=== PATIENT | male | born 1970 | race Caucasian/White ===

== ENCOUNTER 2019-05-18 01:34 | Outpatient (CLI) | payer OTHER, SELFPAY ==
[2019-05-18 09:52] LABS: Abs Immature Grans 0.02 k/cumm (0.0-0.09); Absolute Basophil Count 0.04 k/cumm (0.0-0.2); Absolute Eosinophil Count 0.19 k/cumm (0.0-0.7); Absolute Lymphocyte Count 2.62 k/cumm (1.2-3.4); Absolute Monocyte Count 0.41 k/cumm (0.11-0.7); Absolute Neutrophil Count 3.62 k/cumm (1.2-6.7); Basophils % 0.6; Eosinophils % 2.8; HCT 45.6 % (40.0-50.0); HGB 15.8 g/dL (13.5-17.5); Immature Grans % 0.3 %; Mean Corp. HGB Concentration 34.6 g/dL (32.0-36.0); Mean Corpuscular Hemoglobin 30.7 pg (27.0-33.0); Mean Corpuscular Volume 88.7 fL (80-95); Mean Platelet Volume 10.4 fL (8.0-11.0); Monocytes % 5.9; Neutrophils % 52.4; Platelet Count 281 x1000/uL (130-400); RBC 5.14 m/cumm (4.50-6.00); RBC Distribution Width 12.5 % (11.8-14.1)
--- NOTE | 2019-05-18 09:56 | DI.US_ITS ---
EXAM: US SCROTUM CLINICAL HISTORY: r/o acute process; L worse than R, pain, swelling, N50.811, N50.812, N50.8. TECHNIQUE: Scrotal ultrasound performed using grayscale, color-flow and spectral Doppler analysis. COMPARISON: No exams were available for comparison FINDINGS: Right testicle: 4.2 x 2.3 x 3.2 cm Left testicle: 4.1 x 2.3 x 2.8 cm Echogenicity: Normal. Contour: Smooth. Mass: None seen. Microlithiasis: A few scattered calcifications in the left testicle. Hydrocele: Small bilateral hydroceles. Variocele: Left varicocele. Hernia: No peristalsing bowel loop identified. Epididymis: Small epididymal head cysts bilaterally. The largest is on the left and measures 3 tyrone meters. DOPPLER: Color: Symmetric and uniform, no hyperemia. Duplex: Bilateral testicular arterial waveforms visualized. IMPRESSION: 1. No evidence of testicular mass or torsion. 2. Incidental findings as described above.
[2019-05-18 11:23] LABS: ALT 41 U/L (16-63); AST 19 U/L (15-37); Albumin 4.1 g/dL (3.4-5.0); Alkaline Phosphatase 67 U/L (46-116); Anion Gap 10.1 mmol/L (3-11); BUN 14 mg/dL (7-18); Bilirubin, Total 0.3 mg/dL (0.2-1.0); CO2 27.9 mmol/L (21.0-32.0); Calcium 9.5 mg/dL (8.5-10.1); Calculated LDL 185 mg/dL; Chloride 104 mmol/L (98-107); Cholesterol 280 mg/dL (<200); Folate 15.6 ng/mL (8.6-20.0); Glucose 103 mg/dL (74-106); HDL Cholesterol 35 mg/dL (40-60); Potassium 4.5 mmol/L (3.5-5.1); Sodium 142 mmol/L (136-145); TSH (W/Ref FT4) 2.59 uIU/mL (0.36-3.74); Total Protein 8.1 g/dL (6.4-8.2); Triglyceride 301 mg/dL (<150)
[2019-05-18 11:35] LABS: Vitamin B12 1038 pg/mL (193-986)
[2019-05-19 10:17] LABS: PSA, Screening 0.6 ng/mL (0.0-3.5)
== END 2019-05-18 01:54 ==
PROVIDERS: PCP Nurse Practitioner Family; Visit Provider Nurse Practitioner Adult Health
DX: N50.811 Right testicular pain (principal); N50.812 Left testicular pain; N50.89 Other specified disorders of the male genital organs; N50.3 Cyst of epididymis; N43.3 Hydrocele, unspecified; F10.11 Alcohol abuse, in remission; Z13.1 Encounter for screening for diabetes mellitus; Z13.220 Encounter for screening for lipoid disorders; Z80.42 Family history of malignant neoplasm of prostate; Z12.5 Encounter for screening for malignant neoplasm of prostate; Z80.8 Family history of malignant neoplasm of other organs or systems
CPT/HCPCS: 36415; 80053; 80061; 84153; 76870; 82607; 82746; 84443; 85025

== ENCOUNTER 2021-12-07 01:17 | Outpatient (CLI) | payer OTHER, SELFPAY ==
--- OUTSIDE RECORDS SUMMARY | 2021-12-07 01:31 | XMS_ITS | Encounter Summary ---
:1970 Author Organization [facility] Address [address] [place] [address] Care Team Providers Name Role Phone Vanesa Shell MD Primary Care Provider Encounter Details Date Type Department Care Team Description 05/18/2019 Lab Requisition [facility] Unknown, Provider, Pathology & Laboratory [facility] [address] [place] [address] Social History Tobacco Use Types Packs/Day Years Used Date Never Assessed Sex Assigned at Date Recorded Not on file documented as of this encounter Plan of Treatment Not on filedocumented as of this encounter Procedures Procedure Name Priority Date/Time Associated Comments Diagnosis PSA TOTAL, Routine 05/18/2019 9:39 EST Results for this DIAGNOSTIC procedure are i n the results section. documented in this encounter Results PSA TOTAL, DIAGNOSTIC (05/18/2019 9:39 EST) Pathologist Sig nature PSA 0.6 0.0 - 3.5 ng/mL [facility] Specimen Blood - Venous blood (substance) Narrative [facility] - 05/19/2019 10:13 EST NOTE: Serum PSA concentration should not be in terpreted as absolute evidence for the presence or absence of malignant disease. Assayed on Siemens ADVIA Centaur XPT usi ng chemiluminescent technology.??Values obtained by using different assay methods cannot be used interchangeably. Performing Organization Address City/State/ZIP Code Phon e Number [facility] [address] [place] [address] SERVICES documented in this encounter Visit Diagnoses Not on filedocumented in this encounter Care Teams Inspector Subassemblies Relationship Specialty Start Date End Date Vanesa Shell MD PCP - General 01/25/15 documented as of this encounter
--- OUTSIDE RECORDS SUMMARY | 2021-12-07 01:31 | XMS_ITS | Clinical Summary ---
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
[2021-12-07 08:27] LABS: HCT 45.3 % (40.0-50.0); MCH 31.6 pg (27.0-33.0); MCHC 35.3 % (32.0-36.0); MCV 89 fL (80-95); MPV 10.4 fL (8.0-11.0); Platelet Count 247 10^3/uL (130-400); RBC 5.07 10^6/uL (4.36-5.78); RDW 11.9 % (11.8-14.1); RDW-SD 38.4 fL; WBC 6.48 10^3/uL (4.4-10.8)
[2021-12-07 08:39] LABS: Hemoglobin A1C 5.5 % (<5.7)
[2021-12-07 09:10] LABS: ALT 29 U/L (16-63); AST 15 U/L (15-37); Albumin 4.2 g/dL (3.4-5.0); Alkaline Phosphatase 56 U/L (46-116); Anion Gap 8.6 mmol/L (3-11); BUN 17 mg/dL (7-18); Bilirubin, Total 0.3 mg/dL (0.2-1.0); CO2 24.4 mmol/L (21.0-32.0); CREATININE 1.1 mg/dL (0.70-1.30); Calculated LDL 157 mg/dL (<100); Chloride 105 mmol/L (98-107); Cholesterol 229 mg/dL (<200); Folate 13.4 ng/mL (8.6-20.0); Glucose 113 mg/dL (74-106); HDL Cholesterol 36 mg/dL (40-60); Potassium 4.1 mmol/L (3.5-5.1); Sodium 138 mmol/L (136-145); TSH (W/Ref FT4) 0.67 uIU/mL (0.36-3.74); Total Protein 8.4 g/dL (6.4-8.2); Triglyceride 183 mg/dL (<150)
[2021-12-10 09:58] LABS: PSA, Screening 0.5 ng/mL (<=3.5)
== END 2021-12-07 01:18 | disposition home or self-care (01) ==
LOC: LBO 01:17
PROVIDERS: Absent Provider Nurse Practitioner; PCP Nurse Practitioner Family; Referring Provider Nurse Practitioner; Visit Provider Nurse Practitioner
DX: E11.9 Type 2 diabetes mellitus without complications (principal); E78.5 Hyperlipidemia, unspecified; R73.01 Impaired fasting glucose; Z12.5 Encounter for screening for malignant neoplasm of prostate; R63.5 Abnormal weight gain
CPT/HCPCS: 36415; 80053; 80061; 84153; 85027; 82746; 83036; 84443

== ENCOUNTER 2022-01-10 02:55 | Outpatient (CLI) | payer OTHER, SELFPAY ==
[2022-01-14 12:27] LABS: Albumin 60.6 % (55.8-66.1); Albumin g/dL 4.6 g/dL (3.6-5.2); Total Protein 7.6 g/dL (6.3-8.2)
== END 2022-01-10 02:56 | disposition home or self-care (01) ==
LOC: LBO 02:55
PROVIDERS: PCP Nurse Practitioner Family; Visit Provider Nurse Practitioner Family
DX: E88.09 Other disorders of plasma-protein metabolism, not elsewhere classified (principal)
CPT/HCPCS: 36415; 84165

== ENCOUNTER 2022-02-07 11:00 | Day surgery (SDC) | payer OTHER, SELFPAY ==
[2022-02-07] VITALS (8 sets, daily range): BP systolic 111–141; BP diastolic 66–90; PULSE 74–92; RESP 14–24; TEMP 36.7–37.2; O2SAT 94–98; BMI 28.8
--- NOTE | 2022-02-07 07:09 | W.PM.DSUDISC ---
Discharge Plan Disposition Patient Disposition: HOME Condition: Good Discharge Details Reason For Visit: Screening colonoscopy for routine maintenance Attending Provider: Vaibhav Rothman Primary Care Provider: Cheryl Jauregui Home Meds and New Rx's Prescriptions: Discontinued polyethylene glycol 3350 17 gram/dose powder 238 g PO ONCE Qty: 238 0RF Rx Instructions: take per colonoscopy instructions bisacodyl [Dulcolax (bisacodyl)] 5 mg tablet,delayed release (DR/EC) 5 mg PO ONCE Qty: 4 0RF Rx Instructions: take per colonoscopy instructions No Action No Known Home Meds Discharge Instructions Additional Instructions: 1. If tolerated, consume a soft, low fiber diet for 1-2 days. 2[address] Do not drive, drink alcohol, operate machinery, make critical decisions, or do activities that require coordination or balance for 24 hours. 3. Because air was put into your colon during the procedure, expelling air from your rectum (passing gas or farting) is normal. 4. You may not have a bowel movement for 1-3 days because of the colonoscopy prep. This is normal. 5. Go directly to the emergency room if you notice any of the following: Develop chills (warm to touch), or if you have a thermometer and your temperature is above 101 Difficulty breathing or difficultly swallowing Persistent vomiting Severe abdominal pain, other than gas cramps Severe chest pain Black, tarry stools Any bleeding ? exceeding one tablespoon 6. Call your physician if the site where your intravenous was started becomes red, swollen, painful, and warm to touch. 7. Your physician has reviewed your pre-procedure medications. Please continue to take those medications as previously ordered. You will be given specific information/education regarding any changes to your medications before leaving. Activity:: Activity as Tolerated Diet:: As Tolerated Discharge Orders Discharge Orders: Discharge Order (Routine); Ordered 02/07/22 Ordered By: Vaibhav Rothman DS: Diagnosis Discharge Diagnosis (1) Screening for malignant neoplasm of colon: Status: Acute Asessment and Plan: Normal colonoscopy. Follow-up in 10 years for your next 1
--- NOTE | 2022-02-07 07:12 | W.COLOREPORT ---
Colonoscopy Report Date of procedure: 02/07/22 Pre-op diagnosis general: Screening colonoscopy routine health maintenance Post-op diagnosis procedure note: same Procedure: Screening colonoscopy Surgeon: Vaibhav Rothman Anesthesia Type: General:No Airway Estimated blood loss (mL): 0 Pathology: none sent Complications: None Disposition: same day Indications: Pawan 51-year-old male who is here for screening colonoscopy Prep: Miralax/Dulcolax Procedure Start Time: 12:07 Procedure End Time: 12:21 Retraction Time: 11 Procedure Description: After the induction of monitored anesthetic care, and with the patient in left lateral decubitus position, I began by performing an external anorectal exam.? Perineum and skin were normal, as was the anal verge.? There was evidence of external hemorrhoids.? Next, I performed a digital rectal exam.? I did appreciate any abnormal findings.? Next, I advanced a colonoscope into the rectal vault.? I performed retroflexion.? There were very mild internal hemorrhoids.? Using insufflation, I then advanced the colonoscope beyond the rectal folds and into the sigmoid colon before advancing towards the cecum.? The quality of the prep was excellent.? The scope was noted to be in the cecum by identification of the ileocecal valve and appendiceal orifice.? I then began withdrawing the colonoscope using repeated irrigation as necessary for full evaluation of the colonic mucosa. ?Once the scope was withdrawn to the level of the rectum, great care was taken to examine portions of the rectal folds.? Finally, the scope was withdrawn and the patient was brought to the same-day surgery recovery unit as the anesthetic wore off. ?The findings and instructions were shared with the patient prior to discharge.
[2022-02-07] MEDS: Lactated Ringers 1,000 ML 80 ML IV (11:40)
--- NOTE | 2022-02-07 11:42 | W.ANESPRE ---
General Info Date of Service Date Performed: 02/07/22 Height: 5 ft 7 in Weight: 83.3 kg Body Mass Index (BMI): 28.8 Surgical Procedure: Operation Date: 02/07/22 12:35 Proposed Procedure Side Surgeon ree Rothman MD Meds Allergies and Home Medications Allergies Allergy/AdvReac Type Severity Reaction Status Date / Time No Known Allergies Allergy Unverified 02/07/22 11:23 Home Medication Medication Instructions Recorded Unknown [No Known Home Meds] 02/07/22 Current Visit Medications: Current Medications Generic Name Dose Route Start Last Admin Trade Name Freq PRN Reason Stop Dose Admin Hyoscyamine Sulfate 0.125 mg 02/07/22 07:11 Hyoscyamine 0.125 Mg Sl/Oral/Chew SL DIRECTED PRN Ringer's Solution 1,000 mls @ 80 mls/hr 02/07/22 06:00 IV 03/08/22 23:59 INFUSION ABDOULAYE IV Miscellaneous Supplies 1 each 02/07/22 06:00 Iv Access IV 03/08/22 23:59 DIRECTED ABDOULAYE Ondansetron HCl 4 mg 02/07/22 07:11 Ondansetron 4 Mg/2 Ml Vial IVP Q4H PRN PRN Nausea / Vomiting Sodium Chloride 0 ml 02/07/22 06:00 Normal Saline Flush 10 Ml Syr IV 03/08/22 23:59 PRN PRN Sodium Chloride 0 ml 02/07/22 06:00 Normal Saline 10 Ml Vial IJ 03/08/22 23:59 DIRECTED PRN Sterile Water 0 ml 02/07/22 06:00 Water,Injection,Sterile 10 Ml Vial IJ 03/08/22 23:59 DIRECTED PRN PFSH Active Problems Active Problems: Problem Status Onset Code History of alcohol abuse F10.11 Urinary stream slowing R39.198 Impaired fasting glucose R73.01 Groin pain R10.30 Hyperlipidemia E78.5 Medical History Medical History Testicular pain Surgical History Surgical History (Updated 02/07/22 @ 11:24 by Briana Alvares) Hx of knee surgery S/P wisdom tooth extraction Tobacco Smoking/Tobacco Use Status: Never Smokeless tobacco user: other Passive smoking exposure: No Alcohol Alcohol Intake: current Alcohol intake frequency: a few times a week Alcohol type: beer, wine and hard liquor Substance Use Substance use: Daily Substance use type: marijuana Details: alcohol: T-2, marijuana: t, joint Vital Signs and Lab Results Vital Signs Most Recent Vital Signs in EMR: Most Recent Vital Signs Temp Pulse Resp BP Pulse Ox 36.7 C 92 H 18 132/90 98 02/07/22 11:26 02/07/22 11:26 02/07/22 11:26 02/07/22 11:26 02/07/22 11:26 Lab Results Blood Type / Crossmatch: No Data to Display Complete Blood Count: No Data to Display Complete Metabolic Panel: No Data to Display Liver Function Panel: No Data to Display Coagulation Panel: No Data to Display Cardiac Panel: No Data to Display Arterial Blood Gas: No Data to Display Venous Blood Gas: No Data to Display Pancreas Panel: No Data to Display Thyroid Panel: No Data to Display Infectious Disease: No Data to Display Blood Cultures: No Data to Display Toxicology Panel: No Data to Display Anesthesia Assessment and Plan Anesthesia History Personal History: No History of Anesthesia Complications Family History: No Family History of Anesthesia Complications Exercise Tolerance Exercise Tolerance: Metabolic Equivalents>4 Pertinent Negatives Pertinent Negatives: No Symptoms of GERD Cardiac & Pulmonary Exam Cardiac Exam: Normal S1/S2 Heart Sounds Pulmonary Exam: Clear Bilateral Breath Sounds Implantable Cardiac Device Does patient have a Pacemaker or an ICD?: No Airway Exam Known Difficult Airway: No Mallampati Class: 2 Mouth Opening: Normal (> 3cm) Thyromental Distance: Greater than 3 cm Neck Range of Motion: Full ROM Neck Circumference: Normal Teeth Condition: Generalized Poor Dentition ASA Classification ASA Score: ASA 2 Emergency Case?: No NPO Status NPO Status: NPO Clears >2 hours, Solids >8 hours Anesthesia Plan Resuscitation Status: Full Code Anesthesia Technique: General Anesthesia Airway Planned: Natural Airway Monitors Used: Standard Monitors
--- NOTE | 2022-02-07 14:56 | ANES.POST_ITS ---
Postoperative Evaluation Date, Time and Location Date Performed: 02/07/22 Time Performed: 15:05 Patient Location: Day Surgery Unit Vital Signs Most Recent Imported Vital Signs: Most Recent Vital Signs Temp Pulse Resp BP Pulse Ox 36.8 C 74 14 119/79 95 02/07/22 13:03 02/07/22 13:03 02/07/22 13:03 02/07/22 13:03 02/07/22 13:03 Pain Score Most Recent Pain Score: Most Recent Pain Score Pain Level 0 02/07/22 13:03 Assessment Mental Status: Awake (Alert & Oriented to Patient Baseline) Airway and Respiratory Function: Patent airway with normal (patient baseline) respiratory exam Cardiovascular Function: Hemodynamically Stable Hydration Status: Adequately Hydrated Nausea & Vomiting: No Nausea or Vomiting Pain: Pt. Denies Any Pain Peripheral Nerve Block: Patient did not receive a nerve block Teaching Patient Teaching: Other (Patient with potential aspiration at end of case. Pa tient and educated to signs and symptoms of when to call or go to the ER. Patient appropriate to go home and all questions answered.)
== END 2022-02-07 14:02 | disposition home or self-care (01) ==
PROVIDERS: PCP Nurse Practitioner Family; Visit Provider Surgery
PROC: 0DJD8ZZ Inspection of Lower Intestinal Tract, Via Natural or Artificial Opening Endoscopic (ICD-10-PCS; CPT 45378; principal; 2022-02-07 12:30)
DX: Z12.11 Encounter for screening for malignant neoplasm of colon (principal); E78.5 Hyperlipidemia, unspecified; R73.01 Impaired fasting glucose
CPT/HCPCS: 45378; J2250

== ENCOUNTER 2022-12-19 13:56 | Outpatient (REF) | payer OTHER, SELFPAY | END 2022-12-19 13:57 | disposition home or self-care (01) | LOC: LBO 13:56 | PROVIDERS: PCP Nurse Practitioner Family; Visit Provider Nurse Practitioner Family | DX: J02.9 Acute pharyngitis, unspecified (principal) | CPT/HCPCS: 87070 ==

== ENCOUNTER 2025-03-01 01:17 | Outpatient (CLI) | payer OTHER, SELFPAY ==
[2025-03-01 14:29] LABS: HCT 46.3 % (40.0-50.0); HGB 15.9 g/dL (13.5-17.5); MCH 30.8 pg (27.0-33.0); MCHC 34.3 % (32.0-36.0); MCV 90 fL (80-95); MPV 10.1 fL (8.0-11.0); Platelet Count 251 10^3/uL (130-400); RBC 5.16 10^6/uL (4.36-5.78); RDW 11.9 % (11.8-14.1); RDW-SD 39.0 fL; WBC 6.84 10^3/uL (4.4-10.8)
[2025-03-01 14:46] LABS: Hemoglobin A1C 5.2 % (<5.7)
[2025-03-01 15:22] LABS: Anion Gap 8.7 mmol/L (3-11); BUN 10 mg/dL (7-18); CO2 28.3 mmol/L (21.0-32.0); Calcium 9.1 mg/dL (8.5-10.1); Calculated LDL 183 mg/dL (<100); Chloride 101 mmol/L (98-107); Cholesterol 242 mg/dL (<200); Estimated GFR 88.88 (mL/min/1.73m2); Glucose 94 mg/dL (74-106); HDL Cholesterol 42 mg/dL (>or=40); Potassium 4.2 mmol/L (3.5-5.1); Sodium 138 mmol/L (136-145); Triglyceride 87 mg/dL (<150)
== END 2025-03-01 01:18 | disposition home or self-care (01) ==
LOC: LBO 01:17
DX: E78.5 Hyperlipidemia, unspecified (principal); R73.01 Impaired fasting glucose
CPT/HCPCS: 36415; 80048; 80061; 85027; 83036